=== PATIENT | male | born 1975 | race Caucasian/White ===

== ENCOUNTER 2023-08-22 14:00 | Outpatient (CLI) | payer MEDICAID ==
--- NOTE | 2023-08-22 16:27 | XRAY Report ---
PROCEDURE: Hand 3+V RT INDICATIONS: RIGHT HAND PAIN TECHNIQUE: 3 views of the hand(s) acquired. COMPARISON: None. FINDINGS: Bones: No fractures or dislocations. No suspicious bony lesions. Soft tissues: No suspicious soft tissue calcifications or masses. IMPRESSION: No acute bony abnormality. Reviewed by: Nabil Bradshaw MD on 08/22/2023 4:25 PM PST Approved by: Nabil Bradshaw MD on 08/22/2023 4:25 PM [facility] Station ID: [id number]
== END 2023-08-22 14:15 | disposition home or self-care (01) ==
LOC: DI.N 14:00
PROVIDERS: ATTEND Family Medicine
DX: M79.641 Pain in right hand (principal)